=== PATIENT | male | born 1960 | race Caucasian/White ===

== ENCOUNTER 2017-05-03 08:28 | Outpatient (CLI) | payer OTHER | END 2017-05-03 08:40 | disposition home or self-care (01) | LOC: RAD 501 08:28 | DX: R06.00 Dyspnea, unspecified (principal); N20.0 Calculus of kidney ==

== ENCOUNTER → 2023-10-09 | Emergency (ER) | payer OTHER ==
[~2023-10-09] VITALS: Ht 172.7 cm; Wt 87.5 kg
[~2023-10-09] MED LIST: ACETAMINOPHEN 500 MG GEL..CAP PO ONE; ADULT ASPIRIN81 MG PO; EZALLOR SPRINKLE5 MG PO; FAMOTIDINE/PF 20 MG in 0.9 % SODIUM CHLORIDE 8 ML IV PUSH STA; FAMOTIDINE/PF 20 MG/2 ML VIAL ONE; NEXIUM2.5 MG PO; PLAVIX75 MG PO; SODIUM CHLORIDE 0.45 % 1,000 ML IV SCH; VASOTEC2.5 MG PO
[2023-10-09 05:57] LABS: HEMATOCRIT 37.4 % (39.0-48.0); HEMOGLOBIN 13.4 g/dL (13-16.00); MEAN CELL VOLUME 84.8 fL (80.0-100.00); MEAN CORPUSCULAR HEMOGLOBIN 30.4 pg (27.00-32.0); MEAN CORPUSCULAR HGB CONC 35.8 g/dl (32.0-36.0); PLATELET COUNT 169 K/uL (150-450); RED BLOOD COUNT 4.41 M/uL (4.00-6.00)
[2023-10-09 06:08] LABS: ALBUMIN 3.5 gm/dL (3.4-5.0); BILIRUBIN TOTAL 0.35 mg/dL (0.3-1.2); CREATININE SERUM 0.96 mg/dL (0.70-1.30); GFR 79.37; GLOBULINA 2.7 G/DL (2.4-3.5); POTASSIUM 4.05 mEq/L (3.5-5.1); TOTAL PROTEIN 6.2 gm/dL (6.4-8.2)
== END | disposition left against medical advice (07) ==
LOC: ER 04:47
PROVIDERS: General Practice
DX: R07.9 Chest pain, unspecified (principal); I10 Essential (primary) hypertension